=== PATIENT | male | born 1970 | race Caucasian/White ===

== ENCOUNTER 2017-05-05 07:04 | Emergency (ER) | payer SELFPAY ==
[~2017-05-05] VITALS: Ht 180.3 cm; Wt 89.8 kg
[2017-05-05] MEDS ORDERED: OXYCODONE HCL5 MG PO ×2 (09:07→09:09)
[2017-05-05 09:36] VITALS: BP 130/91
== END 2017-05-05 09:35 | disposition home or self-care (01) ==
LOC: EME 07:04
DX: S22.42XA Multiple fractures of ribs, left side, initial encounter for closed fracture (principal); Y04.2XXA Assault by strike against or bumped into by another person, initial encounter; Y92.89 Other specified places as the place of occurrence of the external cause; I10 Essential (primary) hypertension; F17.200 Nicotine dependence, unspecified, uncomplicated
CPT/HCPCS: 71020; 71100; 99281; 99283; J1885; J3010